=== PATIENT | male | born 2000 | race Caucasian/White ===

== ENCOUNTER 2023-06-02 22:37 | Emergency (ER) | payer OTHER ==
[~2023-06-02] VITALS: Ht 175.3 cm; Wt 91.0 kg
[2023-06-02 22:44] VITALS: O2SAT 97
[2023-06-02] MEDS ORDERED: LIDOCAINE HCL/PF 1% 10 MG/ML 5ML VIAL INFIL ONE (23:00)
[2023-06-03] MEDS: TETANUS, DIPHTHERIA, PERTUSSIS VAC/PF 0.5ML (>10YR OLD) IM ONE (00:40)
[2023-06-03] MEDS: ACETAMINOPHEN 325MG TABLET PO ONE (00:42)
[2023-06-03] MEDS: BACITRACIN ZINC OINT UDPKT TOP ONE (00:52)
[2023-06-03] MEDS ORDERED: ACET-2708 MT (03:00)
[2023-06-03 03:22] VITALS: BP 115/70; PULSE 66; RESP 15; TEMP 98.5
== END 2023-06-03 04:23 | disposition home or self-care (01) ==
LOC: ER 22:37
DX: S61.212A Laceration without foreign body of right middle finger without damage to nail, initial encounter (principal); S09.90XA Unspecified injury of head, initial encounter; V49.49XA Driver injured in collision with other motor vehicles in traffic accident, initial encounter; Y93.89 Activity, other specified; Y92.89 Other specified places as the place of occurrence of the external cause; Y99.8 Other external cause status
CPT/HCPCS: 99285; 71101; 73130; 73590; 73610; 90715; 70450; 90471; J3490